=== PATIENT | female | born 1970 | race Caucasian/White ===

== ENCOUNTER 2018-06-09 20:43 | Emergency (ER) | payer BC ==
--- NOTE | 2018-06-09 21:17 | Emergency Department Record ---
History of Present Illness - General Chief complaint: Female Urogenital Problem Stated complaint: I THINK I HAVE A KIDNEY INFECTION Time Seen by Provider: 06/09/18 21:14 Source: Patient Mode of Arrival: Ambulatory Limitations: No limitations - History of Present Illness Initial comments: 47 yo female presents to ED for evaluation of bladder fullness and low back "burning" symptoms x 1 week. Patient reports "I think I have a kidney infection ". Patient denies history of previous symptoms, denies history of kidney stones. Patient also denies fevers, chills, nausea, or vomiting symptoms. Patient denies abdominal pain symptoms or flank pain symptoms. Patient also denies health problems at her baseline. MD Complaint: Other Onset/Timin -: Days(s) Location: Other Severity: Mild Severity scale (1-10): 3 Quality: Burning Consistency: Constant Improves with: None Worsens with: None Patient : No Associated Symptoms: Denies other symptoms - Related Data Home Medications Medication Instructions Recorded Confirmed Last Taken Vortioxetine Hydrobromide 10 mg PO DAILY 06/09/18 06/09/18 Unknown [Trintellix] Allergies Allergy/AdvReac Type Severity Reaction Status Date / Time No Known Drug Allergies Allergy Verified 06/09/18 21:00 Travel Screening - Travel/Exposure Within Last 30 Days Have you traveled within the last 30 days?: No - Travel/Exposure Within Last Year Have you traveled outside the [place] in the last year?: No - Additonal Travel Details Have you been exposed to anyone with a communicable illness?: No - Travel Symptoms Symptom Screening: None Review of Systems Constitutional: Denies: Chills, Fever, Malaise, Night sweats Eyes: Denies: Eye discharge, Eye pain ENT: Denies: Congestion, Ear pain, Epistaxis Respiratory: Denies: Cough, Dyspnea Cardiovascular: Denies: Chest pain, Dyspnea on exertion Endocrine: Denies: Fatigue, Heat or cold intolerance Gastrointestinal: Denies: Abdominal pain, Nausea, Vomiting Genitourinary: Reports: Dysuria. Denies: Frequency, Hematuria, Incontinence, Retention Musculoskeletal: Reports: Back pain. Denies: Arthralgia, Gout, Joint swelling Skin: Denies: Bruising, Change in color Neurological: Denies: Abnormal gait, Confusion, Headache, Seizure Psychiatric: Denies: Anxiety Hematological/Lymphatic: Denies: Anemia, Blood Clots Past Medical History - SOCIAL HISTORY Smoking Status: Never smoker Alcohol Use: Occasional Drug Use: None - RESPIRATORY Hx Respiratory Disorders: No - CARDIOVASCULAR Hx Cardio Disorders: No - NEURO Hx Neuro Disorders: No - GI Hx GI Disorders: No - Hx Genitourinary Disorders: No - ENDOCRINE Hx Endocrine Disorders: No - MUSCULOSKELETAL Hx Musculoskeletal Disorders: No - PSYCH Hx Psych Problems: No - HEMATOLOGY/ONCOLOGY Hx Hematology/Oncology Disorders: No Family Medical History Any Significant Family History?: No Hx Stroke: Mother, Brother/Sister Physical Exam - General General Appearance: Alert, Oriented x3, Cooperative, No acute distress, Other ( resting comfortably on examination) Limitations: No limitations - Head Head exam: Atraumatic, Normocephalic, Normal inspection Head exam detail: negative: Abrasion, Contusion, Albert's sign, General tenderness, Hematoma, Laceration - Eye Eye exam: Normal appearance. negative: Conjunctival injection, Periorbital swelling, Periorbital tenderness, Scleral icterus - ENT Ear exam: negative: Auricular hematoma, Auricular trauma Nasal Exam: negative: Active bleeding, Discharge, Dried blood, Foreign body Mouth exam: negative: Drooling, Laceration, Muffled voice, Tongue elevation - Neck Neck exam: Normal inspection. negative: Meningismus, Tenderness - Respiratory Respiratory exam: Normal lung sounds bilaterally. negative: Rales, Respiratory distress, Rhonchi, Stridor - Cardiovascular Cardiovascular Exam: Regular rate, Normal rhythm, Normal heart sounds - GI/Abdominal GI/Abdominal exam: Soft. negative: Rebound, Rigid, Tenderness - Rectal Rectal exam: Deferred - exam: Deferred - Extremities Extremities exam: Normal inspection. negative: Pedal edema, Tenderness - Back Back exam: Denies: CVA tenderness (R), CVA tenderness (L) - Neurological Neurological exam: Alert, Normal gait, Oriented X3 - Psychiatric Psychiatric exam: Normal affect, Normal mood - Skin Skin exam: Normal color. negative: Abrasion Type of lesion: negative: abrasion Course Vital Signs 06/09/18 20:53 Temperature 98.5 F Pulse Rate [ 68 Pulse Ox Probe] Respiratory 16 Rate Blood Pressure 177/88 [Left Arm] Pulse Ox 97 - Reevaluation(s) Reevaluation #1: 06/09/18 21:24 UA reviewed and appears negative for infection. Patient was updated on her results and appears negative for infection. Disposition Disposition: Discharge Clinical Impression: Low back pain Qualifiers: Chronicity: unspecified Back pain laterality: midline Sciatica presence: without sciatica Qualified Code(s): M54.5 - Low back pain Disposition: Home, Self-Care Condition: (2) Stable Instructions: Acute Low Back Pain (ED) Additional Instructions: Return to ED if your symptoms worsen or if you have any concerns. Ibuprofen as directed. Follow-up with your family doctor in 3-5 days as directed. Forms: Patient Portal Access Time of Disposition: 21:25 Quality - Quality Measures Quality Measures: N/A - Blood Pressure Screening Does Patient Have Any of the Following: No Blood Pressure Classification: Pre-Hypertensive BP Reading Systolic Measurement: 177 Diastolic Measurement: 88 Screening for High Blood Pressure: < Pre-Hypertensive BP, F/U Documented > [ G8950] Pre-Hypertensive Follow-up Interventions: Referral to alternative/primary care provider.
[2018-06-09 21:20] LABS: URINE APPEARANCE CLEAR; URINE BILIRUBIN NEGATIVE (NEGATIVE); URINE BLOOD NEGATIVE (NEGATIVE); URINE COLOR YELLOW; URINE GLUCOSE (UA) NEGATIVE (NEGATIVE); URINE KETONE NEGATIVE (NEGATIVE); URINE LEUKOCYTE ESTERASE NEGATIVE (NEGATIVE); URINE NITRITE NEGATIVE (NEGATIVE); URINE PROTEIN NEGATIVE (NEGATIVE); URINE UROBILINOGEN 0.2 E.U./dL (0.20 - 1.00)
== END 2018-06-09 21:31 | disposition home or self-care (01) ==
LOC: ER 20:43
DX: M54.5 Low back pain (principal); R39.89 Other symptoms and signs involving the genitourinary system
CPT/HCPCS: 81003; 99282

== ENCOUNTER 2018-09-16 20:40 | Emergency (ER) | payer BC ==
--- NOTE | 2018-09-16 20:53 | Emergency Department Record ---
History of Present Illness - General Chief Complaint: Chest Pain Stated Complaint: CHEST TIGHTNESS Time Seen by Provider: 09/16/18 20:52 Source: Patient Mode of Arrival: Ambulatory Limitations: No limitations - History of Present Illness Initial Comments: 48 yo female presents to ED for evaluation of chest pain symptoms radiating to the back this evening associated with "fluttering" in the chest. Patient reports a history of HTN, denies previous history of cardiac disease, DVT, DM, or previous stress testing. Patient denies smoking history, but does report family history of CVA and MS under the age of 60. Patient reports chest "tightness" symptoms 1 month ago, was supposed to undergo outpatient stress testing but has been ill with an URI for 3-4 weeks. MD Complaint: Chest pain Onset/Timin -: Hour(s) Onset: During rest Pain Location: Left chest Pain Radiation: Back Severity: Mild Severity scale (1-10): 1 Quality: Dull, Heaviness Consistency: Constant Improves With: Nothing Worsens With: Nothing Context: New medications Treatments Prior to Arrival: None - Related Data On Oral Contraceptives: No Home Medications Medication Instructions Recorded Confirmed Last Taken Azithromycin 250 mg PO DAILY 09/16/18 09/16/18 Unknown Lisinopril 10 mg PO DAILY 09/16/18 09/16/18 Unknown Methylprednisolone [Medrol Dose 4 mg PO DAILY 09/16/18 09/16/18 Unknown Pack] Allergies Allergy/AdvReac Type Severity Reaction Status Date / Time No Known Drug Allergies Allergy Verified 09/16/18 20:49 Travel Screening - Travel/Exposure Within Last 30 Days Have you traveled within the last 30 days?: No - Travel/Exposure Within Last Year Have you traveled outside the [place] in the last year?: No - Additonal Travel Details Have you been exposed to anyone with a communicable illness?: No - Travel Symptoms Symptom Screening: None Review of Systems Constitutional: Denies: Chills, Fever, Malaise, Night sweats Eyes: Denies: Eye discharge, Eye pain ENT: Denies: Congestion, Ear pain, Epistaxis Respiratory: Denies: Cough, Dyspnea Cardiovascular: Reports: Chest pain. Denies: Dyspnea on exertion, Edema Endocrine: Denies: Fatigue, Heat or cold intolerance Gastrointestinal: Denies: Abdominal pain, Nausea, Vomiting Genitourinary: Denies: Incontinence, Retention Musculoskeletal: Reports: Back pain. Denies: Arthralgia Skin: Denies: Bruising, Change in color Neurological: Denies: Abnormal gait, Confusion, Headache, Seizure Psychiatric: Denies: Anxiety Hematological/Lymphatic: Denies: Anemia, Blood Clots Past Medical History - SOCIAL HISTORY Smoking Status: Never smoker Alcohol Use: Rare Drug Use: None - RESPIRATORY Hx Respiratory Disorders: No - CARDIOVASCULAR Hx Cardio Disorders: Yes Hx Chest Pain: Yes Hx Hypertension: Yes - NEURO Hx Neuro Disorders: No - GI Hx GI Disorders: No - Hx Genitourinary Disorders: No - ENDOCRINE Hx Endocrine Disorders: No - MUSCULOSKELETAL Hx Musculoskeletal Disorders: No - PSYCH Hx Psych Problems: No - HEMATOLOGY/ONCOLOGY Hx Hematology/Oncology Disorders: No Family Medical History Any Significant Family History?: No Hx Stroke: Mother, Brother/Sister Physical Exam - General General Appearance: Alert, Oriented x3, Cooperative, Moderate distress Limitations: No limitations - Head Head exam: Atraumatic, Normocephalic, Normal inspection Head exam detail: negative: Abrasion, Contusion, Albert's sign, General tenderness, Hematoma, Laceration - Eye Eye exam: Normal appearance. negative: Conjunctival injection, Periorbital swelling, Periorbital tenderness, Scleral icterus - ENT Ear exam: negative: Auricular hematoma, Auricular trauma Nasal Exam: negative: Active bleeding, Discharge, Dried blood, Foreign body Mouth exam: negative: Drooling, Laceration, Muffled voice, Tongue elevation - Neck Neck exam: Normal inspection. negative: Meningismus, Tenderness - Respiratory Respiratory exam: Normal lung sounds bilaterally. negative: Rales, Respiratory distress, Rhonchi, Stridor - Cardiovascular Cardiovascular Exam: Regular rate, Normal rhythm, Normal heart sounds Peripheral Pulses: 3+: Radial (R), Radial (L), Dorsalis Pedis (R), Dorsalis Pedis (L) - GI/Abdominal GI/Abdominal exam: Soft. negative: Rebound, Rigid, Tenderness - Rectal Rectal exam: Deferred - exam: Deferred - Extremities Extremities exam: Normal inspection. negative: Calf tenderness, Pedal edema, Tenderness - Back Back exam: Denies: CVA tenderness (R), CVA tenderness (L) - Neurological Neurological exam: Alert, Normal gait, Oriented X3 - Psychiatric Psychiatric exam: Normal affect, Normal mood - Skin Skin exam: Normal color. negative: Abrasion Type of lesion: negative: abrasion Course Vital Signs 09/16/18 20:46 Temperature 98.4 F Pulse Rate [ 79 Pulse Ox Probe] Respiratory 20 Rate Blood Pressure 210/103 [Left Arm] Pulse Ox 95 - Reevaluation(s) Reevaluation #1: 09/16/18 20:53 EKG: NSR 73 Normal axis, normal intervals No acute ST-T wave changes present on examination Reevaluation #2: 09/16/18 21:02 Patient was seen and examined, ASA and nitro ordered for elevated BP and chest discomfort symptoms Will obtain CTA of the chest/abdomen as well as cardiac evaluation here in the ED. Reevaluation #3: 09/16/18 21:24 EKG #2: NSR 74 Normal axis, normal intervals No acute ST-T wave changes are present Unchanged from initial EKG. Troponin reported to be negative as well. Pain improved following Nitro x 2, back pain remains. Patient is going for CT at this time. Reevaluation #4: 09/16/18 22:26 CTA Chest: No acute abnormality of aorta Coronary artery calcifications are present Will initiate transfer to [facility] for cardiac evaluation. Reevaluation #5: 09/16/18 22:37 Case was discussed with Dr. Domínguez, will accept transfer at this time for further cardiac evaluation. Medical Decision Making - Lab Data Result diagrams: 09/16/18 21:00 09/16/18 21:00 Disposition Disposition: Transfer Clinical Impression: Chest pain Qualifiers: Chest pain type: unspecified Qualified Code(s): R07.9 - Chest pain, unspecified CAD (coronary artery disease) Qualifiers: Coronary Disease-Associated Artery/Lesion type: unspecified vessel or lesion type [place] vs. transplanted heart: [place] heart Associated angina: with unstable angina Qualified Code(s): I25.110 - Atherosclerotic heart disease of [place] coronary artery with unstable angina pectoris Disposition: Acute Care Hospital Transfer Transfer To: [facility] Reason For Transfer: Cardiac evaluation Accepting Physician: Catrachita Time Discussed w/Accepting Physician: 22:39 Condition: (2) Stable Forms: Patient Portal Access Time of Disposition: 22:39 Quality - Quality Measures Quality Measures: N/A - Blood Pressure Screening Does Patient Have Any of the Following: No Blood Pressure Classification: Pre-Hypertensive BP Reading Systolic Measurement: 149 Diastolic Measurement: 84 Screening for High Blood Pressure: < Pre-Hypertensive BP, F/U Documented > [ G8950] Pre-Hypertensive Follow-up Interventions: Referral to alternative/primary care provider.
[2018-09-16] MEDS ORDERED: ASPIRIN 81 MG CHEWABLE TABLET PO ONE (20:57)
[2018-09-16] MEDS ORDERED: 0.9 % SODIUM CHLORIDE 1000ML 1,000 ML IV SCH (21:00)
[2018-09-16 21:05] LABS: BASO % 0.6 % (0-6); EOS % 0.6 % (0-6); GRAN % 71.6 % (47-80); HEMATOCRIT 42.9 % (35.0-47.0); LYMPH % 20.1 % (16-45); MEAN CELL VOLUME 89.2 fl (81-97); MEAN CORPUSCULAR HEMOGLOBIN 29.1 pg (27-33); MEAN CORPUSCULAR HGB CONC 32.6 g/dl (32-36); MEAN PLATELET VOLUME 9.5 fl (7.4-10.4); MONO % 7.1 % (0-9); PLATELET COUNT 471 K/uL (130-400); RED BLOOD COUNT 4.81 M/uL (3.80-5.40); WHITE BLOOD COUNT W/O DIFF 12.7 K/uL (4.2-12.2)
[2018-09-16 21:14] LABS: BLOOD UREA NITROGEN 17 mg/dL (6-20); CREATININE 0.9 mg/dL (0.5-0.9); EST GLOMERULAR FILTRATION RATE > 60 mL/min; TOTAL PROTEIN 7.9 g/dL (6.6-8.7)
[2018-09-16 21:16] LABS: GLUCOSE,RANDOM 138 mg/dL (74-109)
[2018-09-16] MEDS: NITROGLYCERIN 0.4MG SL TABLET #25 BTL SL PRN ×2 (21:16→21:22)
[2018-09-16 21:19] LABS: ALB/GLOB RATIO 1.6 (1.1-1.8); ALBUMIN 4.9 g/dL (4.0-5.0); ALKALINE PHOSPHATASE 74 U/L (35-104); ALT/SGPT 56 U/L (<33); AST/SGOT 38 U/L (10.0-35.0)
--- NOTE | 2018-09-18 14:59 | CT ANGIOGRAM REPORT ---
EXAM: CT ANGIOGRAM OF THE CHEST AND ABDOMEN WITH CONTRAST AND WITH PROCESSING HISTORY: CHEST TIGHTNESS AND PAIN. HEART PALPITATIONS AND ELEVATED BLOOD PRESSURE. TECHNIQUE: CT angiography of the chest and abdomen was performed in the standard fashion following the bolus administration of 100 ml of Omnipaque 350. Additional coronal and sagittal maximum intensity projection reformatted images were performed on an independent workstation under concurrent supervision. Comparison: None. FINDINGS: The heart is normal in size. There are mild coronary artery calcifications. There is no pericardial effusion. The thoracic aorta is normal in caliber. There is no dissection. The pulmonary arterial tree is normal. There is no mediastinal or hilar lymphadenopathy. The lungs are clear. There are no pleural effusions. The chest wall and axillary regions are normal. There are no acute osseous abnormalities. The abdominal aorta is normal in caliber. There is minor atherosclerotic calcification. The celiac trunk and superior mesenteric artery are normal. The inferior mesenteric artery is normal in caliber. The right renal artery is normal in caliber. There is a small accessory left renal artery and a main left renal artery. There is no stenosis. The abdominal venous structures are normal in appearance. The liver parenchyma is normal. The gallbladder, biliary tree, pancreas, spleen , and adrenal glands are normal. The kidneys and visualized portions of the ureter are unremarkable. There is no retroperitoneal lymphadenopathy. There are rare diverticula within the descending and sigmoid colon regions with no evidence for acute diverticulitis. The remaining bowel and mesentery are normal. There is no pneumoperitoneum or ascites. The stomach and epigastrium are normal. There are no acute osseous abnormalities. There is minor anterolisthesis of L4 on L5 secondary to bilateral facet arthropathy. IMPRESSION: 1. NORMAL CTA OF THE CHEST AND ABDOMEN. THERE IS NO AORTIC ANEURYSM OR DISSECTION. 2. NO ACUTE INTRATHORACIC OR INTRAABDOMINAL PATHOLOGY. 3. MINOR SIGMOID DIVERTICULOSIS WITH NO DIVERTICULITIS. JOB NUMBER: [id number] [facility]
== END 2018-09-16 23:24 | disposition short-term general hospital (02) ==
LOC: ER 20:40
DX: R07.89 Other chest pain (principal); I25.110 Atherosclerotic heart disease of native coronary artery with unstable angina pectoris; I10 Essential (primary) hypertension
CPT/HCPCS: 99285 ×2; 85025; 82306; 80053; 84443; 80061; 84484; 71275; 74175; 93005; 93010; Q9967; J7030